=== PATIENT | female | born 1980 | race Caucasian/White ===

== ENCOUNTER 2018-12-19 14:30 | Inpatient (IN) | payer MEDICAID ==
[~2018-12-19] VITALS: Ht 154.9 cm; Wt 66.0 kg
[~2018-12-19 14:30] MED LIST: GABA-530 PO; HUM7525 SQ; LANTUS SQ; SULF1TAB49 PO
[2018-12-19] MEDS ORDERED: normal saline 1000ML IV soln IV ONE (15:10)
[2018-12-19] MEDS ORDERED: piperacillin/tazo 3.375gm/50ml 50 ML IV ONE (15:40)
[2018-12-19] MEDS ORDERED: vancomycin/NS 1 GM ADD-VANTAGE 250 ML IV ONE (15:40)
[2018-12-19 16:04] LABS: BASOPHILS % (AUTO) 0.4 % (0-1); EOSINOPHILS # (AUTO) 0.1 X10'3 (0-0.9); EOSINOPHILS % (AUTO) 0.9 % (0-6); HEMATOCRIT 31.5 % (35.0-45.0); HEMOGLOBIN 10.5 g/dl (12.0-16.0); LYMPHOCYTES # (AUTO) 2.2 X10'3 (1.1-4.8); LYMPHOCYTES % (AUTO) 19.3 % (21-51); MEAN CORPUSCULAR HEMOGLOBIN 29.9 PG (27.0-31.0); MEAN CORPUSCULAR HGB CONC 33.4 g/dL (33.0-36.5); MEAN CORPUSCULAR VOLUME 89.4 FL (78-98); MEAN PLATELET VOLUME 7.2 FL (7.4-10.4); MONOCYTES # (AUTO) 0.7 X10'3 (0-0.9); MONOCYTES % (AUTO) 6.6 % (2-12); NEUTROPHILS # (AUTO) 8.2 X10'3 (1.8-7.7); NEUTROPHILS % (AUTO) 72.8 % (42-75); PLATELET COUNT 348 X10'3 (140-440); RED BLOOD COUNT 3.52 X10'6 (4.20-5.60); RED CELL DISTRIBUTION WIDTH 13.9 % (11.5-14.5); WHITE BLOOD COUNT 11.2 X10'3 (4.5-11.0)
[2018-12-19 16:18] LABS: ALANINE AMINOTRANSFERASE 44 U/L (12-78); ALBUMIN 3.1 G/DL (3.4-5.0); ALBUMIN/GLOBULIN RATIO 0.6 (1.1-1.5); ALKALINE PHOSPHATASE 133 IU/L (46-116); ANION GAP 13 (8-16); ASPARTATE AMINO TRANSFERASE 18 U/L (10-37); BILIRUBIN,TOTAL 0.3 MG/DL (0.1-1.0); BLOOD UREA NITROGEN 14 MG/DL (7-18); BUN/CREATININE RATIO 15.6 (6.6-38.0); CALCIUM 9.2 MG/DL (8.5-10.1); CHLORIDE 103 MMOL/L (99-107); GLUCOSE 222 MG/DL (70-104); MAGNESIUM 1.9 MG/DL (1.5-2.4); POTASSIUM 4.3 MMOL/L (3.5-5.1); SODIUM 137 MMOL/L (135-145); TOTAL CARBON DIOXIDE 20.7 MMOL/L (24-32); eGFR 70 ML/MIN
[2018-12-19] MEDS: normal saline 1000ml 1,000 ML IV SCH (16:21)
[2018-12-19] MEDS ORDERED: mag hydrox/Alum hydrox/simeth 30ml oral suspension PO PRN (16:25)
[2018-12-19] MEDS ORDERED: potassium Cl 20 mEq SR tablet PO PRN ×2 (16:25)
[2018-12-19] MEDS ORDERED: potassium CL 10mEq/100ml bag 100 ML IV PRN (16:25)
[2018-12-19] MEDS ORDERED: HYDROcodone/acetaminophen 5mg/325mg tablet PO PRN (16:25)
[2018-12-19] MEDS ORDERED: magnesium Cl slow-release 64mg tablet PO PRN (16:25)
[2018-12-19] MEDS ORDERED: magnesium 4gm in 100ml NS 100 ML IV PRN (16:25)
[2018-12-19] MEDS ORDERED: acetaminophen 325mg tablet PO PRN ×2 (16:25)
[2018-12-19] MEDS ORDERED: morphine 2 MG/ML inj. syringe IV PRN (16:25)
[2018-12-19] MEDS ORDERED: magnesium hydroxide 30ml (MOM) UD suspension PO PRN (16:25)
[2018-12-19] MEDS ORDERED: dextrose ORAL solution 15 GM/59 ML bottle PO PRN (16:25)
[2018-12-19] MEDS ORDERED: potassium Cl 40MEQ/NS 500ml 500 ML IV PRN (16:25)
[2018-12-19] MEDS ORDERED: magnesium 2GM in 50ml NS 50 ML IV PRN (16:25)
[2018-12-19] MEDS ORDERED: glucagon, human recombinant 1mg kit SUBCUT PRN (16:25)
[2018-12-19] MEDS ORDERED: ondansetron/PF 4mg/2ml inj IV PRN (16:25)
[2018-12-19] MEDS ORDERED: dextrose 50%-water 50ml dispensing syringe IV PRN ×2 (16:25)
[2018-12-19] MEDS ORDERED: MESSAGE TO PHARMACY PO ONE (16:25)
[2018-12-19] MEDS ORDERED: morphine 4 MG/ML inj SYRINge IV ONE (16:35)
[2018-12-19] MEDS ORDERED: ondansetron 4mg rapidly disintigrating tab PO ONE (16:35)
[2018-12-19] MEDS ORDERED: iohexol 300mg/ml 100ml inj. ONE (16:42)
[2018-12-19] MEDS ORDERED: LORA10TA7 PO (16:51)
[2018-12-19] MEDS ORDERED: CYCL5TAB4 PO (16:51)
[2018-12-19] MEDS ORDERED: LORA2TAB PO (16:52)
[2018-12-19] MEDS ORDERED: OMEP10CA5 PO (16:53)
[2018-12-19] MEDS ORDERED: MYL80T PO (16:56)
[2018-12-19 16:57] LABS: HEMOGLOBIN A1C 8.7 % (4.5-6.2)
[2018-12-19 17:08] LABS: PARTIAL THROMBOPLASTIN TIME 29 SECONDS (22-32)
[2018-12-19] MEDS ORDERED: simethicone 80mg chew tab PO PRN (17:20)
[2018-12-19] MEDS ORDERED: cyclobenzaprine 10mg tablet PO PRN (17:20)
[2018-12-19 17:32] LABS: URINE HCG NEGATIVE (NEG)
[2018-12-19 17:40] LABS: COLOR,URINE YELLOW (Yellow); GLUCOSE, URINE 100 mg/dl (Neg); KETONES,URINE NEGATIVE (Neg); LEUKOCYTE ESTERASE ,URINE SMALL (Neg); NITRITES, URINE NEGATIVE (Neg); OCCULT BLOOD,URINE SMALL (Neg); PROTEIN,URINE NEGATIVE (Neg); UROBILINOGEN,URINE 0.2 E.U/dL (0.2-1.0)
[2018-12-19] MEDS ORDERED: LORA0.5T PO (17:43)
[2018-12-19] MEDS ORDERED: INSU100I39 (17:43)
[2018-12-19] MEDS ORDERED: INSU100I31 SQ (17:43)
[2018-12-19 17:44] LABS: URINE AMPHETAMINE SCREEN NEGATIVE (Neg); URINE BARBITUATE SCREEN NEGATIVE (Neg); URINE BENZODIAZEPINES SCREEN NEGATIVE (Neg); URINE CANNABINOID SCREEN POSITIVE (Neg); URINE COCAINE SCREEN NEGATIVE (Neg); URINE METHADONE SCREEN NEGATIVE (Neg); URINE OPIATE SCREEN POSITIVE (Neg); URINE PHENCYCLIDINE SCREEN NEGATIVE (Neg)
[2018-12-19 17:50] LABS: CLARITY,URINE SLIGHTLY CLOUDY (Clear); UA COLLECTION TYPE VOIDED
[2018-12-19 17:51] LABS: WBC,URINE 0-4 /HPF (0-4)
[2018-12-19 17:52] LABS: BACTERIA,URINE FEW /HPF (Neg); SQUAMOUS EPITHELIAL CELL,UR FEW /LPF (FEW)
--- NOTE | 2018-12-19 18:44 | NUR ---
pt denies any nausea at this time,iv bolus still infusing as iv is 22g.
[2018-12-19 20:15] VITALS: BP 94/62
[2018-12-19] MEDS: lactobacillus rhamnosus 10,000 MMU CELLS/CAPSULE PO SCH (20:27)
[2018-12-19] MEDS: morphine 2 MG/ML inj. syringe IV PRN (20:35)
[2018-12-19] MEDS: insulin glargine (Lantus) pen - multi-dose SQ SCH (22:06)
[2018-12-19] MEDS: insulin Lispro (HumaLOG) vial - multi-dose SQ SCH (22:07)
[2018-12-19] MEDS: LORazepam 1 MG tablet PO PRN (22:21)
[2018-12-20] VITALS: BP 98/62
[2018-12-20] MEDS: gabapentin 100mg capsule PO SCH ×4 (00:29→23:47)
[2018-12-20] MEDS: piperacillin/tazo 3.375gm/50ml 50 ML IV SCH ×4 (00:29→23:47)
[2018-12-20] MEDS: HYDROcodone/acetaminophen 10/325mg tab PO PRN (02:54)
[2018-12-20] MEDS: normal saline 1000ml 1,000 ML IV SCH ×3 (02:55→23:47)
[2018-12-20] MEDS ORDERED: vancomycin/NS 1 GM ADD-VANTAGE 250 ML IV SCH (05:00)
[2018-12-20 05:01] LABS: BASOPHILS % (AUTO) 0.4 % (0-1); EOSINOPHILS # (AUTO) 0.3 X10'3 (0-0.9); EOSINOPHILS % (AUTO) 4.6 % (0-6); HEMOGLOBIN 8.7 g/dl (12.0-16.0); LYMPHOCYTES # (AUTO) 1.8 X10'3 (1.1-4.8); LYMPHOCYTES % (AUTO) 24.7 % (21-51); MEAN CORPUSCULAR HEMOGLOBIN 29.9 PG (27.0-31.0); MEAN CORPUSCULAR HGB CONC 33.3 g/dL (33.0-36.5); MEAN CORPUSCULAR VOLUME 89.8 FL (78-98); MEAN PLATELET VOLUME 7.1 FL (7.4-10.4); MONOCYTES # (AUTO) 0.7 X10'3 (0-0.9); MONOCYTES % (AUTO) 9.2 % (2-12); NEUTROPHILS # (AUTO) 4.4 X10'3 (1.8-7.7); NEUTROPHILS % (AUTO) 61.1 % (42-75); PLATELET COUNT 328 X10'3 (140-440); RED CELL DISTRIBUTION WIDTH 13.9 % (11.5-14.5); WHITE BLOOD COUNT 7.2 X10'3 (4.5-11.0)
[2018-12-20 05:29] LABS: ALBUMIN 2.5 G/DL (3.4-5.0); ANION GAP 10 (8-16); BLOOD UREA NITROGEN 15 MG/DL (7-18); BUN/CREATININE RATIO 19.7 (6.6-38.0); CALCIUM 8.5 MG/DL (8.5-10.1); CHLORIDE 108 MMOL/L (99-107); CREATININE 0.76 MG/DL (0.40-0.90); GLUCOSE 134 MG/DL (70-104); MAGNESIUM 1.9 MG/DL (1.5-2.4); POTASSIUM 3.9 MMOL/L (3.5-5.1); SODIUM 140 MMOL/L (135-145); TOTAL CARBON DIOXIDE 22.1 MMOL/L (24-32); eGFR 86 ML/MIN
--- NOTE | 2018-12-20 06:17 | NUR ---
Patient in room [facility]US[facility] 347. I have received report from Lisa HENDERSON and had the opportunity to ask questions and assume patient care.
--- NOTE | 2018-12-20 06:26 | NUR ---
Problems reprioritized. Patient report given, questions answered & plan of care reviewed with Cayetano RN.Patient is resting and shows no sign of distress.
[2018-12-20 07:00] VITALS: BP 120/100
[2018-12-20] MEDS: K and/or MAG REPLACEMENT MC SCH (08:00)
[2018-12-20] MEDS: pantoprazole 40mg Tablet.DR PO SCH (08:00)
[2018-12-20] MEDS: lactobacillus rhamnosus 10,000 MMU CELLS/CAPSULE PO SCH ×2 (08:00→19:44)
[2018-12-20] MEDS: loratadine 10mg tablet PO SCH (08:01)
[2018-12-20] MEDS: enoxaparin 40mg/0.4ml syringe SQ SCH (08:02)
[2018-12-20] MEDS: morphine 2 MG/ML inj. syringe IV PRN ×3 (08:02→19:44)
[2018-12-20] MEDS: insulin Lispro (HumaLOG) vial - multi-dose SQ SCH ×3 (08:17→18:42)
[2018-12-20] MEDS ORDERED: morphine 2 MG/ML inj. syringe IV ONE (10:20)
[2018-12-20 11:00] VITALS: BP 103/70
[2018-12-20] MEDS: vancomycin/NS 1 GM ADD-VANTAGE 250 ML IV SCH ×2 (13:09→21:16)
--- NOTE | 2018-12-20 14:20 | NUR ---
DIABETIC FOOT CARE EDUCATION PROVIDED BY WOUND CARE * Wash your feet daily with lukewarm water and soap. * Dry your feet well, especially between the toes. * Keep the skin moisturized with lotion, but do not apply it between the toes. * Check your feet for blisters, cuts or sores. * Use an emery board to shape your toenails even with the ends of your toes. * Change daily into clean, soft socks or stockings, not too big or too small. * Keep your feet warm and dry. * Preferably wear special padded socks and shoes that fit well. * Never walk barefoot indoors or outdoors. * Examine your shoes everyday for cracks, stan, nails or anything that could hurt your feet. * Tell your doctor if you find any of these problems or have any concerns after examining your feet. Addendum: 12/20/18 at 1421 by Diann Scott RN Amended: Links added.
--- NOTE | 2018-12-20 16:17 | NUR ---
DM consult: Pt with A1c 8.7 admit with extensive cellulitis of the right foot with diabetic foot infection with moderate sepsis. Pt seen at bedside states she takes long and short acting insulin per rx using sliding scale and checks her BG levels up to 8 times a day with a resulting BG range of 150-350. Thoroughly discussed foods that contain carbs, reading the nutrition facts label, and the importance of moderate and consistent carb intake. Per EMR pt with A1c of 14.3 in 2015 and 13.2 in 2017. Pt provided with written and verbal protein and DM ed with referral to outpatient DM class. All of patient's questions were answered at this time, RD contact information provided. Pt currently on CHO controlled diet with documented 100% PO intake. Pt reports she is still hungry after meals, pt agreeable to double protein TID, d/w dietary. Pt denies any food allergies or difficulties chewing/swallowing. Pt reports chronic diarrhea r/t colitis and states LBM today was liquid, pt requests banana with dinner, d/w dietary. Will continue to follow. Recommendations: 1) Continue with CHO controlled diet 2) Double protein TID 3) Wt per rx Addendum: 12/20/18 at [address] Amended: Links added.
--- NOTE | 2018-12-20 18:37 | NUR ---
Problems reprioritized. Patient report given, questions answered & plan of care reviewed with Prudence RN.
--- NOTE | 2018-12-20 18:56 | NUR ---
Patient in room [facility] 347. I have received report from Cayetano HENDERSON and had the opportunity to ask questions and assume patient care.
[2018-12-20 20:00] VITALS: BP 113/71
[2018-12-20] MEDS: insulin glargine (Lantus) pen - multi-dose SQ SCH (21:33)
[2018-12-20] MEDS: LORazepam 1 MG tablet PO PRN (21:34)
[2018-12-21] VITALS: BP 103/59
[2018-12-21] MEDS: morphine 2 MG/ML inj. syringe IV PRN ×6 (01:48→23:11)
[2018-12-21] MEDS ORDERED: VANCOMYCIN LEVEL IV ONE (04:30)
[2018-12-21 04:45] LABS: BASOPHILS % (AUTO) 0.5 % (0-1); EOSINOPHILS # (AUTO) 0.3 X10'3 (0-0.9); EOSINOPHILS % (AUTO) 4.1 % (0-6); HEMATOCRIT 25.6 % (35.0-45.0); HEMOGLOBIN 8.8 g/dl (12.0-16.0); LYMPHOCYTES % (AUTO) 25.1 % (21-51); MEAN CORPUSCULAR HEMOGLOBIN 30.4 PG (27.0-31.0); MEAN CORPUSCULAR HGB CONC 34.3 g/dL (33.0-36.5); MEAN CORPUSCULAR VOLUME 88.7 FL (78-98); MEAN PLATELET VOLUME 6.8 FL (7.4-10.4); MONOCYTES # (AUTO) 0.7 X10'3 (0-0.9); MONOCYTES % (AUTO) 9.2 % (2-12); NEUTROPHILS % (AUTO) 61.1 % (42-75); PLATELET COUNT 324 X10'3 (140-440); RED BLOOD COUNT 2.89 X10'6 (4.20-5.60); RED CELL DISTRIBUTION WIDTH 13.5 % (11.5-14.5); WHITE BLOOD COUNT 8.1 X10'3 (4.5-11.0)
[2018-12-21 04:57] LABS: ALBUMIN 2.3 G/DL (3.4-5.0); ANION GAP 9 (8-16); BLOOD UREA NITROGEN 10 MG/DL (7-18); BUN/CREATININE RATIO 14.9 (6.6-38.0); CALCIUM 7.8 MG/DL (8.5-10.1); CHLORIDE 106 MMOL/L (99-107); CREATININE 0.67 MG/DL (0.40-0.90); GLUCOSE 180 MG/DL (70-104); MAGNESIUM 1.6 MG/DL (1.5-2.4); POTASSIUM 3.9 MMOL/L (3.5-5.1); SODIUM 138 MMOL/L (135-145); TOTAL CARBON DIOXIDE 22.9 MMOL/L (24-32); VANCOMYCIN,TROUGH 18.7 UG/ML (6.0-14.0); eGFR > 90 ML/MIN
[2018-12-21] MEDS: vancomycin/NS 1 GM ADD-VANTAGE 250 ML IV SCH ×3 (05:24→22:19)
--- NOTE | 2018-12-21 06:29 | NUR ---
Problems reprioritized. Patient report given, questions answered & plan of care reviewed with Cayetano HENDERSON.
--- NOTE | 2018-12-21 06:31 | NUR ---
Patient in room [facility]US[facility] 347. I have received report from Lisa HENDERSON and had the opportunity to ask questions and assume patient care.
[2018-12-21 07:00] VITALS: BP 100/60
[2018-12-21] MEDS: piperacillin/tazo 3.375gm/50ml 50 ML IV SCH ×2 (07:05→16:25)
[2018-12-21] MEDS: gabapentin 100mg capsule PO SCH ×3 (07:06→23:10)
[2018-12-21] MEDS: lactobacillus rhamnosus 10,000 MMU CELLS/CAPSULE PO SCH ×2 (07:06→19:07)
[2018-12-21] MEDS: pantoprazole 40mg Tablet.DR PO SCH (07:06)
[2018-12-21] MEDS: enoxaparin 40mg/0.4ml syringe SQ SCH (07:06)
[2018-12-21] MEDS: loratadine 10mg tablet PO SCH (07:06)
[2018-12-21] MEDS: K and/or MAG REPLACEMENT MC SCH (08:00)
[2018-12-21] MEDS: insulin Lispro (HumaLOG) vial - multi-dose SQ SCH ×3 (08:46→21:03)
[2018-12-21 11:00] VITALS: BP 97/67
[2018-12-21] MEDS: dextrose ORAL solution 15 GM/59 ML bottle PO PRN (17:22)
--- NOTE | 2018-12-21 17:49 | NUR ---
Patient's blood sugar went down to 36mg/dl- 30g of glucose shot given per protocol. Patient was alert, appears weak, skin cold, clammy. Peripheral IV occluded. Repeat blood sugar after 15 minutes was 53 mg/dl, another glucose shot 15g was given to patient. Attempted to insert a new peripheral IV x2 with no success. Blood sugar after 15 minutes was 174 mg/dl. Patient stated feeling better at this time.
--- NOTE | 2018-12-21 18:26 | NUR ---
Problems reprioritized. Patient report given, questions answered & plan of care reviewed with Radu HENDERSON.
--- NOTE | 2018-12-21 18:30 | NUR ---
Patient in room [facility] 347. I have received report from Cayetano HENDERSON and had the opportunity to ask questions and assume patient care.
[2018-12-21 19:00] VITALS: BP 110/69
[2018-12-21] MEDS: LORazepam 1 MG tablet PO PRN (20:38)
[2018-12-21] MEDS: insulin glargine (Lantus) pen - multi-dose SQ SCH (21:04)
[2018-12-21 23:40] VITALS: BP 111/72
[2018-12-22] MEDS: piperacillin/tazo 3.375gm/50ml 50 ML IV SCH ×3 (00:41→16:03)
[2018-12-22] MEDS: morphine 2 MG/ML inj. syringe IV PRN ×5 (03:28→21:33)
[2018-12-22 05:08] LABS: BASOPHILS % (AUTO) 0.6 % (0-1); EOSINOPHILS # (AUTO) 0.3 X10'3 (0-0.9); EOSINOPHILS % (AUTO) 6.2 % (0-6); HEMATOCRIT 26.6 % (35.0-45.0); HEMOGLOBIN 9.4 g/dl (12.0-16.0); LYMPHOCYTES # (AUTO) 1.5 X10'3 (1.1-4.8); LYMPHOCYTES % (AUTO) 28.2 % (21-51); MEAN CORPUSCULAR HEMOGLOBIN 30.7 PG (27.0-31.0); MEAN CORPUSCULAR HGB CONC 35.3 g/dL (33.0-36.5); MEAN CORPUSCULAR VOLUME 86.8 FL (78-98); MEAN PLATELET VOLUME 6.9 FL (7.4-10.4); MONOCYTES # (AUTO) 0.6 X10'3 (0-0.9); NEUTROPHILS # (AUTO) 2.9 X10'3 (1.8-7.7); PLATELET COUNT 347 X10'3 (140-440); RED BLOOD COUNT 3.07 X10'6 (4.20-5.60); RED CELL DISTRIBUTION WIDTH 13.2 % (11.5-14.5); WHITE BLOOD COUNT 5.4 X10'3 (4.5-11.0)
[2018-12-22 05:20] LABS: ALBUMIN 2.4 G/DL (3.4-5.0); ANION GAP 6 (8-16); BLOOD UREA NITROGEN 13 MG/DL (7-18); BUN/CREATININE RATIO 18.3 (6.6-38.0); CALCIUM 8.5 MG/DL (8.5-10.1); CHLORIDE 103 MMOL/L (99-107); CREATININE 0.71 MG/DL (0.40-0.90); GLUCOSE 234 MG/DL (70-104); MAGNESIUM 1.7 MG/DL (1.5-2.4); POTASSIUM 4.2 MMOL/L (3.5-5.1); SODIUM 136 MMOL/L (135-145); TOTAL CARBON DIOXIDE 27.5 MMOL/L (24-32); eGFR > 90 ML/MIN
[2018-12-22] MEDS: vancomycin/NS 1 GM ADD-VANTAGE 250 ML IV SCH ×3 (05:24→20:06)
[2018-12-22] MEDS: HYDROcodone/acetaminophen 10/325mg tab PO PRN ×4 (05:26→19:15)
--- NOTE | 2018-12-22 06:36 | NUR ---
Problems reprioritized. Patient report given, questions answered & plan of care reviewed with serenity tsai.
[2018-12-22] MEDS: K and/or MAG REPLACEMENT MC SCH (07:37)
[2018-12-22] MEDS: loratadine 10mg tablet PO SCH (07:37)
[2018-12-22] MEDS: lactobacillus rhamnosus 10,000 MMU CELLS/CAPSULE PO SCH ×2 (07:37→19:15)
[2018-12-22] MEDS: pantoprazole 40mg Tablet.DR PO SCH (07:37)
[2018-12-22] MEDS: enoxaparin 40mg/0.4ml syringe SQ SCH (07:38)
[2018-12-22] MEDS: gabapentin 100mg capsule PO SCH ×2 (07:38→16:00)
[2018-12-22 08:00] VITALS: BP 110/66
--- NOTE | 2018-12-22 08:13 | NUR ---
Resource RN unable to scan pt.s wristband to obtain BG. Use this RNs name mariajose still did not work. Obtained new wristband for pt. Still not working. Holding pt.'s tray at this moment. Pt. asymptomatic of hyper/hypoglycemia. Contacted Ang STEINER, but cannot reach her- awaiting response at this moment.
--- NOTE | 2018-12-22 09:04 | NUR ---
PAGER ID: [phone] MESSAGE: [phone] Lalo Gamez Please call me regarding this pt. thank you. [phone]
[2018-12-22] MEDS: insulin Lispro (HumaLOG) vial - multi-dose SQ SCH ×2 (09:52→13:55)
[2018-12-22 11:22] VITALS: BP 108/72
--- NOTE | 2018-12-22 11:29 | NUR ---
MD aware of high HR. No new orders at this time.
[2018-12-22] MEDS: dextrose ORAL solution 15 GM/59 ML bottle PO PRN (17:08)
[2018-12-22 18:00] VITALS: BP 108/71
--- NOTE | 2018-12-22 18:30 | NUR ---
Patient in room [facility] 347. I have received report from Carol HENDERSON and had the opportunity to ask questions and assume patient care.
--- NOTE | 2018-12-22 18:39 | NUR ---
Gave report to Radu HENDERSON
[2018-12-22] MEDS: LORazepam 1 MG tablet PO PRN (21:33)
[2018-12-22] MEDS: insulin glargine (Lantus) pen - multi-dose SQ SCH (21:55)
[2018-12-23] VITALS: BP 111/68
[2018-12-23] MEDS: gabapentin 100mg capsule PO SCH ×2 (00:08→08:26)
[2018-12-23] MEDS: piperacillin/tazo 3.375gm/50ml 50 ML IV SCH ×2 (00:08→08:26)
[2018-12-23] MEDS: HYDROcodone/acetaminophen 10/325mg tab PO PRN ×2 (00:15→08:26)
[2018-12-23] MEDS: morphine 2 MG/ML inj. syringe IV PRN ×2 (03:58→11:48)
[2018-12-23] MEDS: vancomycin/NS 1 GM ADD-VANTAGE 250 ML IV SCH (04:04)
[2018-12-23 05:48] LABS: BASOPHILS % (AUTO) 0.4 % (0-1); EOSINOPHILS # (AUTO) 0.6 X10'3 (0-0.9); EOSINOPHILS % (AUTO) 9.5 % (0-6); HEMATOCRIT 27.3 % (35.0-45.0); HEMOGLOBIN 9.4 g/dl (12.0-16.0); LYMPHOCYTES # (AUTO) 2.4 X10'3 (1.1-4.8); LYMPHOCYTES % (AUTO) 38.7 % (21-51); MEAN CORPUSCULAR HEMOGLOBIN 30.5 PG (27.0-31.0); MEAN CORPUSCULAR HGB CONC 34.4 g/dL (33.0-36.5); MEAN CORPUSCULAR VOLUME 88.6 FL (78-98); MEAN PLATELET VOLUME 6.6 FL (7.4-10.4); MONOCYTES # (AUTO) 0.6 X10'3 (0-0.9); NEUTROPHILS # (AUTO) 2.6 X10'3 (1.8-7.7); NEUTROPHILS % (AUTO) 42.4 % (42-75); PLATELET COUNT 369 X10'3 (140-440); RED BLOOD COUNT 3.07 X10'6 (4.20-5.60); RED CELL DISTRIBUTION WIDTH 13.6 % (11.5-14.5); WHITE BLOOD COUNT 6.1 X10'3 (4.5-11.0)
[2018-12-23 06:05] LABS: ALBUMIN 2.4 G/DL (3.4-5.0); ANION GAP 7 (8-16); BLOOD UREA NITROGEN 15 MG/DL (7-18); BUN/CREATININE RATIO 18.1 (6.6-38.0); CALCIUM 8.6 MG/DL (8.5-10.1); CHLORIDE 103 MMOL/L (99-107); CREATININE 0.83 MG/DL (0.40-0.90); GLUCOSE 231 MG/DL (70-104); MAGNESIUM 1.7 MG/DL (1.5-2.4); POTASSIUM 4.4 MMOL/L (3.5-5.1); SODIUM 139 MMOL/L (135-145); TOTAL CARBON DIOXIDE 29.3 MMOL/L (24-32); eGFR 77 ML/MIN
--- NOTE | 2018-12-23 06:34 | NUR ---
Problems reprioritized. Patient report given, questions answered & plan of care reviewed with Lyla HENDERSON.
--- NOTE | 2018-12-23 06:56 | NUR ---
Patient in room [facility] 347. I have received report from Jeniffer HENDERSON and had the opportunity to ask questions and assume patient care.
[2018-12-23 07:00] VITALS: BP 117/73
[2018-12-23] MEDS: K and/or MAG REPLACEMENT MC SCH (08:00)
[2018-12-23] MEDS: lactobacillus rhamnosus 10,000 MMU CELLS/CAPSULE PO SCH (08:26)
[2018-12-23] MEDS: loratadine 10mg tablet PO SCH (08:26)
[2018-12-23] MEDS: pantoprazole 40mg Tablet.DR PO SCH (08:26)
[2018-12-23] MEDS: enoxaparin 40mg/0.4ml syringe SQ SCH (08:27)
[2018-12-23] MEDS: insulin Lispro (HumaLOG) vial - multi-dose SQ SCH (08:47)
[2018-12-23] MEDS ORDERED: CLIN-5 PO (11:04)
[2018-12-23] MEDS ORDERED: INSU100I31 SQ (11:04)
[2018-12-23 12:00] VITALS: BP 111/78
[2018-12-23] MEDS ORDERED: HYDR-4383 PO (14:04)
--- NOTE | 2018-12-23 16:46 | NUR ---
patient appears stable. wound care done and pictured. seen by Dr manley is for discharge. Triplicate given to patient for norco, and other med called throught [facility] [address]. All Dc instructions given. patient DC in stable condition via private car to home. 1400hrs.
--- NOTE | 2018-12-23 16:48 | NUR ---
patient called at 1600 stating that the [facility] pharmacy would not issue Lincoln because vivian did not have a date on. Staff talked with pharmacy at [facility] about this situation, but pharmacist at [facility] stated that she would have to return to [facility] to get DR manley to redate triplicate. patient informed, but did not call back or at this time come back to hospital to do this.
== END 2018-12-23 14:36 | disposition home or self-care (01) | DRG 720 ==
LOC: ER 14:31 → SUR 3N 19:00 → CMPBEDREQ 19:28
PROVIDERS: ADMIT Hospitalist; ATTEND Internal Medicine
PROC: BQ2R1ZZ Computerized Tomography (CT Scan) of Right Lower Extremity using Low Osmolar Contrast (ICD-10-PCS; principal; 2018-12-19)
DX: A41.9 Sepsis, unspecified organism (principal); E11.40 Type 2 diabetes mellitus with diabetic neuropathy, unspecified; E11.621 Type 2 diabetes mellitus with foot ulcer; E11.65 Type 2 diabetes mellitus with hyperglycemia; F15.90 Other stimulant use, unspecified, uncomplicated; F17.210 Nicotine dependence, cigarettes, uncomplicated; L03.115 Cellulitis of right lower limb; L97.519 Non-pressure chronic ulcer of other part of right foot with unspecified severity; Z59.0 Homelessness; Z83.3 Family history of diabetes mellitus; Z90.49 Acquired absence of other specified parts of digestive tract; Z98.51 Tubal ligation status; Z79.899 Other long term (current) drug therapy; Z79.4 Long term (current) use of insulin; Z71.6 Tobacco abuse counseling
CPT/HCPCS: 36415; 71045; 73700; 80048; 80053; 80202; 80305; 81001; 81025; 82948; 83036; 83605; 83735; 84145; 85025; 85610; 85730; 87040; 87070; 87077; 87081; 87088; 87186; 93005; 96365; 96366; 96368; 96375; 99285; G0378; J1650; J1815; J2270; J2543; J3370; J7030; Q9967

== ENCOUNTER 2019-01-16 17:55 | Emergency (ER) | payer MEDICAID ==
[~2019-01-16] VITALS: Ht 154.9 cm; Wt 68.0 kg
[~2019-01-16 17:55] MED LIST changes: +CLIN-5 PO; +CYCL5TAB4 PO; -HUM7525 SQ; +HYDR-4383 PO; +INSU100I31 SQ; +INSU100I39; -LANTUS SQ; +LORA0.5T PO; +LORA10TA7 PO; +MYL80T PO; +OMEP10CA5 PO; -SULF1TAB49 PO
[2019-01-16] MEDS ORDERED: HYDROcodone/acetaminophen 5mg/325mg tablet PO ONE (19:35)
[2019-01-16 20:04] LABS: BASOPHILS # (AUTO) 0.1 X10'3 (0-0.2); BASOPHILS % (AUTO) 1.5 % (0-1); EOSINOPHILS # (AUTO) 0.4 X10'3 (0-0.9); EOSINOPHILS % (AUTO) 5.5 % (0-6); HEMATOCRIT 32.8 % (35.0-45.0); HEMOGLOBIN 11.1 g/dl (12.0-16.0); LYMPHOCYTES # (AUTO) 2.8 X10'3 (1.1-4.8); LYMPHOCYTES % (AUTO) 37.5 % (21-51); MEAN CORPUSCULAR HEMOGLOBIN 30.1 PG (27.0-31.0); MEAN CORPUSCULAR VOLUME 88.7 FL (78-98); MEAN PLATELET VOLUME 8.1 FL (7.4-10.4); MONOCYTES # (AUTO) 0.4 X10'3 (0-0.9); MONOCYTES % (AUTO) 5.5 % (2-12); NEUTROPHILS # (AUTO) 3.7 X10'3 (1.8-7.7); PLATELET COUNT 236 X10'3 (140-440); RED CELL DISTRIBUTION WIDTH 14.4 % (11.5-14.5); WHITE BLOOD COUNT 7.3 X10'3 (4.5-11.0)
[2019-01-16 20:17] LABS: ALANINE AMINOTRANSFERASE 37 U/L (12-78); ALBUMIN 3.3 G/DL (3.4-5.0); ALBUMIN/GLOBULIN RATIO 0.8 (1.1-1.5); ALKALINE PHOSPHATASE 77 IU/L (46-116); ANION GAP 8 (8-16); ASPARTATE AMINO TRANSFERASE 13 U/L (10-37); BILIRUBIN,TOTAL 0.1 MG/DL (0.1-1.0); BLOOD UREA NITROGEN 18 MG/DL (7-18); BUN/CREATININE RATIO 21.7 (6.6-38.0); CALCIUM 9.4 MG/DL (8.5-10.1); CHLORIDE 109 MMOL/L (99-107); CREATININE 0.83 MG/DL (0.40-0.90); GLUCOSE 226 MG/DL (70-104); SODIUM 142 MMOL/L (135-145); TOTAL CARBON DIOXIDE 25.2 MMOL/L (24-32); TOTAL PROTEIN 7.4 G/DL (6.4-8.2); eGFR 77 ML/MIN
[2019-01-16] MEDS ORDERED: CLIN-96 PO (20:21)
[2019-01-16] MEDS ORDERED: clindamycin 150mg capsule PO ONE (20:25)
[2019-01-16 20:35] VITALS: BP 102/61
== END 2019-01-16 20:36 | disposition home or self-care (01) ==
LOC: ER 17:56
DX: E10.621 Type 1 diabetes mellitus with foot ulcer (principal); L97.519 Non-pressure chronic ulcer of other part of right foot with unspecified severity; L03.115 Cellulitis of right lower limb; F17.200 Nicotine dependence, unspecified, uncomplicated; F15.90 Other stimulant use, unspecified, uncomplicated; Z90.49 Acquired absence of other specified parts of digestive tract; Z98.51 Tubal ligation status; Z59.0 Homelessness; Z79.4 Long term (current) use of insulin; Z79.899 Other long term (current) drug therapy
CPT/HCPCS: 36415; 80053; 85025; 99283

== ENCOUNTER 2019-06-28 12:27 | Outpatient (CLI) | payer MEDICAID ==
[~2019-06-28 12:27] MED LIST changes: +CLIN-90 PO
== END 2019-06-28 23:59 | disposition home or self-care (01) ==
LOC: CARD DIAG 12:27
PROVIDERS: ATTEND Surgery
DX: I34.0 Nonrheumatic mitral (valve) insufficiency (principal); I50.9 Heart failure, unspecified
CPT/HCPCS: 93306

== ENCOUNTER 2019-07-09 10:14 | Emergency (ER) | payer MEDICAID ==
[~2019-07-09] VITALS: Ht 154.9 cm; Wt 68.8 kg
[2019-07-09 11:39] LABS: BASOPHILS % (AUTO) 0.4 % (0-1); EOSINOPHILS # (AUTO) 0.2 X10'3 (0-0.9); EOSINOPHILS % (AUTO) 1.8 % (0-6); HEMATOCRIT 30.5 % (35.0-45.0); HEMOGLOBIN 10.4 g/dl (12.0-16.0); LYMPHOCYTES # (AUTO) 2.3 X10'3 (1.1-4.8); LYMPHOCYTES % (AUTO) 25.5 % (21-51); MEAN CORPUSCULAR HEMOGLOBIN 30.4 PG (27.0-31.0); MEAN CORPUSCULAR HGB CONC 34.1 g/dL (33.0-36.5); MEAN CORPUSCULAR VOLUME 89.1 FL (78-98); MEAN PLATELET VOLUME 8.4 FL (7.4-10.4); MONOCYTES # (AUTO) 0.6 X10'3 (0-0.9); MONOCYTES % (AUTO) 6.3 % (2-12); PLATELET COUNT 282 X10'3 (140-440); RED BLOOD COUNT 3.43 X10'6 (4.20-5.60); RED CELL DISTRIBUTION WIDTH 14.5 % (11.5-14.5); WHITE BLOOD COUNT 9.1 X10'3 (4.5-11.0)
[2019-07-09 11:41] LABS: PARTIAL THROMBOPLASTIN TIME 21 SECONDS (22-32)
[2019-07-09 12:28] LABS: ALANINE AMINOTRANSFERASE 49 U/L (12-78); ALBUMIN 3.6 G/DL (3.4-5.0); ALBUMIN/GLOBULIN RATIO 0.9 (1.1-1.5); ALKALINE PHOSPHATASE 98 IU/L (46-116); ANION GAP 12 (8-16); ASPARTATE AMINO TRANSFERASE 40 U/L (10-37); BILIRUBIN,TOTAL 0.2 MG/DL (0.1-1.0); BLOOD UREA NITROGEN 18 MG/DL (7-18); BUN/CREATININE RATIO 13.6 (6.6-38.0); CALCIUM 9.1 MG/DL (8.5-10.1); CHLORIDE 103 MMOL/L (99-107); CREATININE 1.32 MG/DL (0.40-0.90); GLUCOSE 127 MG/DL (70-104); POTASSIUM 4.7 MMOL/L (3.5-5.1); SODIUM 136 MMOL/L (135-145); TOTAL CARBON DIOXIDE 21.4 MMOL/L (24-32); TOTAL PROTEIN 7.4 G/DL (6.4-8.2); eGFR 45 ML/MIN
[2019-07-09 13:27] VITALS: BP 96/62
--- NOTE | 2019-07-09 13:54 | NUR ---
WOUND CULTURE COLLECTED
[2019-07-09] MEDS ORDERED: HYDROcodone/acetaminophen 5mg/325mg tablet PO ONE ×2 (14:20)
== END 2019-07-09 14:30 | disposition home or self-care (01) ==
LOC: ER 10:14
DX: M96.89 Other intraoperative and postprocedural complications and disorders of the musculoskeletal system (principal); E11.9 Type 2 diabetes mellitus without complications; F15.90 Other stimulant use, unspecified, uncomplicated; I10 Essential (primary) hypertension; Z90.49 Acquired absence of other specified parts of digestive tract; Z98.890 Other specified postprocedural states; Z98.51 Tubal ligation status; Z59.0 Homelessness; Z79.899 Other long term (current) drug therapy; Z79.4 Long term (current) use of insulin; Z89.421 Acquired absence of other right toe(s)
CPT/HCPCS: 36415; 71045; 80053; 82948; 83605; 84145; 85025; 85610; 85730; 87040; 87070; 87077; 87186; 99284

== ENCOUNTER 2019-07-25 08:37 | Outpatient (CLI) | payer MEDICAID ==
[2019-07-25] MEDS ORDERED: diatrozoate meglu/diatrozoate sod (37% iodine) 120ML oral solution ONE (08:52)
== END 2019-07-25 23:59 | disposition home or self-care (01) ==
LOC: 64 CT 08:37
PROVIDERS: ATTEND Surgery
DX: K57.30 Diverticulosis of large intestine without perforation or abscess without bleeding (principal); N20.0 Calculus of kidney; R63.4 Abnormal weight loss; R19.7 Diarrhea, unspecified; I77.1 Stricture of artery
CPT/HCPCS: 74176; Q9963

== ENCOUNTER 2019-08-19 18:40 | Emergency (ER) | payer MEDICAID ==
[~2019-08-19] VITALS: Ht 154.9 cm; Wt 70.5 kg
[~2019-08-19 18:40] MED LIST changes: -CLIN-90 PO; +CLIN-97 PO
[2019-08-19] MEDS ORDERED: HYDR-4383 PO (23:00)
[2019-08-19] MEDS ORDERED: CEPH250T PO (23:02)
[2019-08-19] MEDS ORDERED: HYDROcodone/acetaminophen 10/325mg tab PO ONE (23:25)
[2019-08-19 23:37] VITALS: BP 121/67
== END 2019-08-19 23:40 | disposition home or self-care (01) ==
LOC: ER 18:41
DX: M79.604 Pain in right leg (principal); E11.40 Type 2 diabetes mellitus with diabetic neuropathy, unspecified; F17.200 Nicotine dependence, unspecified, uncomplicated; F15.90 Other stimulant use, unspecified, uncomplicated; Z90.49 Acquired absence of other specified parts of digestive tract; Z98.890 Other specified postprocedural states; Z98.51 Tubal ligation status; Z59.0 Homelessness; Z79.4 Long term (current) use of insulin; Z79.899 Other long term (current) drug therapy
CPT/HCPCS: 82948; 99284

== ENCOUNTER 2019-08-24 06:34 | Day surgery (SDC) | payer MEDICAID ==
[~2019-08-24] VITALS: Ht 154.9 cm; Wt 66.9 kg
[2019-08-24] VITALS (10 sets, daily range): BP systolic 98–180; BP diastolic 58–109
[~2019-08-24 06:34] MED LIST changes: +CEPH250T PO
[2019-08-24] MEDS ORDERED: normal saline 1000ml 1,000 ML IV PRN (07:00)
[2019-08-24 07:07] LABS: BASOPHILS # (AUTO) 0.1 X10'3 (0-0.2); EOSINOPHILS # (AUTO) 0.3 X10'3 (0-0.9); EOSINOPHILS % (AUTO) 3.1 % (0-6); HEMATOCRIT 27.6 % (35.0-45.0); HEMOGLOBIN 9.5 g/dl (12.0-16.0); LYMPHOCYTES # (AUTO) 2.1 X10'3 (1.1-4.8); LYMPHOCYTES % (AUTO) 24.8 % (21-51); MEAN CORPUSCULAR HEMOGLOBIN 29.8 PG (27.0-31.0); MEAN CORPUSCULAR HGB CONC 34.4 g/dL (33.0-36.5); MEAN CORPUSCULAR VOLUME 86.6 FL (78-98); MEAN PLATELET VOLUME 6.8 FL (7.4-10.4); MONOCYTES # (AUTO) 0.6 X10'3 (0-0.9); NEUTROPHILS # (AUTO) 5.3 X10'3 (1.8-7.7); NEUTROPHILS % (AUTO) 64.1 % (42-75); PLATELET COUNT 384 X10'3 (140-440); RED BLOOD COUNT 3.18 X10'6 (4.20-5.60); RED CELL DISTRIBUTION WIDTH 13.9 % (11.5-14.5); WHITE BLOOD COUNT 8.3 X10'3 (4.5-11.0)
[2019-08-24 07:16] LABS: ANION GAP 9 (8-16); BLOOD UREA NITROGEN 11 MG/DL (7-18); BUN/CREATININE RATIO 12.9 (6.6-38.0); CALCIUM 8.4 MG/DL (8.5-10.1); CHLORIDE 113 MMOL/L (99-107); CREATININE 0.85 MG/DL (0.40-0.90); GLUCOSE 184 MG/DL (70-104); POTASSIUM 4.8 MMOL/L (3.5-5.1); SODIUM 143 MMOL/L (135-145); TOTAL CARBON DIOXIDE 20.8 MMOL/L (24-32); eGFR 75 ML/MIN
[2019-08-24] MEDS ORDERED: LANTUS SQ (07:25)
[2019-08-24] MEDS ORDERED: IBUP1CAP11 PO (07:27)
[2019-08-24] MEDS ORDERED: OMEP20TA5 PO (07:28)
[2019-08-24] MEDS ORDERED: LIDOcaine 1%/PF 5ML 10 MG/ML VIAL ONE (07:40)
[2019-08-24] MEDS ORDERED: midazolam 2 mg/2 ml injection ONE ×2 (07:40→09:11)
[2019-08-24] MEDS ORDERED: heparin 1,000 UNITS/NS 500ml 500 ML ONE (07:40)
[2019-08-24] MEDS ORDERED: fentaNYL/PF 50MCG/1 ML 2ML syringe ONE ×2 (07:40→09:11)
[2019-08-24] MEDS ORDERED: iohexol 300mg/ml 100ml inj. ONE ×2 (07:41→09:34)
[2019-08-24] MEDS ORDERED: normal saline 1000ml 1,000 ML IV SCH (08:45)
[2019-08-24] MEDS ORDERED: HYDROcodone/acetaminophen 10/325mg tab PO PRN (11:25)
[2019-08-31] MEDS ORDERED: METO5TAB85 PO (02:14)
== END 2019-08-24 14:15 | disposition home or self-care (01) ==
LOC: SSTAY O 06:34
PROVIDERS: ATTEND Radiology Diagnostic Radiology
DX: I77.4 Celiac artery compression syndrome (principal); E11.9 Type 2 diabetes mellitus without complications; Z98.890 Other specified postprocedural states; F17.210 Nicotine dependence, cigarettes, uncomplicated; Z89.432 Acquired absence of left foot
CPT/HCPCS: 36245; 36415; 75726; 76937; 80048; 85025; 85610; 99152; 99153; C1760; C1769; C1894; J1644; J2250; J3010; J7030; Q9967

== ENCOUNTER 2022-11-03 06:32 | Emergency (ER) | payer MEDICAID ==
[~2022-11-03] VITALS: Ht 154.9 cm; Wt 50.5 kg
[~2022-11-03 06:32] MED LIST changes: -CEPH250T PO; -CLIN-5 PO; -CLIN-97 PO; -CYCL5TAB4 PO; -HYDR-4383 PO; +IBUP1CAP11 PO; -INSU100I31 SQ; +LANTUS SQ; -LORA0.5T PO; -LORA10TA7 PO; +METO5TAB85 PO; -MYL80T PO; -OMEP10CA5 PO; +OMEP20TA43 PO
[2022-11-03 06:35] VITALS: BP 145/95
[2022-11-03] MEDS ORDERED: buprenorphine/naloxone 8MG-2MG SUBlingual film SL STA (08:20)
== END 2022-11-03 11:09 | disposition home or self-care (01) ==
LOC: ER 06:33
DX: T87.89 Other complications of amputation stump (principal); F11.23 Opioid dependence with withdrawal; R11.2 Nausea with vomiting, unspecified; R19.7 Diarrhea, unspecified; E11.9 Type 2 diabetes mellitus without complications; R10.13 Epigastric pain; F12.90 Cannabis use, unspecified, uncomplicated; Z90.49 Acquired absence of other specified parts of digestive tract; Z98.51 Tubal ligation status; Z59.00 Homelessness unspecified; Z79.4 Long term (current) use of insulin; Z79.899 Other long term (current) drug therapy
CPT/HCPCS: 73551; 99284

== ENCOUNTER 2022-12-03 11:57 | Emergency (ER) | payer MEDICAID ==
[~2022-12-03] VITALS: Ht 154.9 cm; Wt 50.5 kg
[2022-12-03 12:11] VITALS: BP 129/91
[2022-12-03 12:31] LABS: CLARITY,URINE SLIGHTLY CLOUDY (Clear); COLOR,URINE YELLOW (Yellow); GLUCOSE, URINE 100 mg/dl (Neg); KETONES,URINE NEGATIVE (Neg); LEUKOCYTE ESTERASE ,URINE NEGATIVE (Neg); NITRITES, URINE NEGATIVE (Neg); OCCULT BLOOD,URINE SMALL (Neg); PROTEIN,URINE 30 mg/dl (Neg); UROBILINOGEN,URINE 0.2 E.U/dL (0.2-1.0)
[2022-12-03 12:34] LABS: UA COLLECTION TYPE CLN CATCH MIDSTREAM
[2022-12-03 12:40] LABS: SQUAMOUS EPITHELIAL CELL,UR MANY /LPF (FEW)
[2022-12-03 12:42] LABS: SPERM MODERATE /HPF
[2022-12-03 12:44] LABS: BACTERIA,URINE 2+ /HPF (Neg)
--- NOTE | 2022-12-03 12:45 | NUR ---
URINE REJECTED FOR CULTURE
[2022-12-03] MEDS ORDERED: buprenorphine/naloxone 8MG-2MG SUBlingual film SL STA (13:03)
[2022-12-03] MEDS ORDERED: NITR100C6 PO (13:09)
== END 2022-12-03 13:18 | disposition home or self-care (01) ==
LOC: ER 11:58
DX: N39.0 Urinary tract infection, site not specified (principal); F11.23 Opioid dependence with withdrawal; E11.9 Type 2 diabetes mellitus without complications; G89.29 Other chronic pain; M54.9 Dorsalgia, unspecified; Z90.49 Acquired absence of other specified parts of digestive tract; Z79.899 Other long term (current) drug therapy
CPT/HCPCS: 81001; 99283

== ENCOUNTER 2022-12-06 12:46 | Emergency (ER) | payer MEDICAID ==
[~2022-12-06] VITALS: Ht 154.9 cm; Wt 50.5 kg
[~2022-12-06 12:46] MED LIST changes: +NITR100C6 PO
[2022-12-06 13:11] VITALS: BP 11/83
[2022-12-06] MEDS ORDERED: buprenorphine/naloxone 8mg/2mg SL tablet SL ONE (14:45)
--- NOTE | 2022-12-06 14:45 | NUR ---
WAITING ON PHARMACY FOR MED, NOT STOCKED IN [facility] - how to [place].
--- NOTE | 2022-12-06 15:34 | NUR ---
2ND CALL TO PHARMACY, MED NOT AVAILABLE IN PILL FORM ONLY FILM. PROVIDER NOTIFIED [facility] TO CHANGE MED TO FILM. PHARMACIST NOTIFIED.
[2022-12-06] MEDS ORDERED: buprenorphine/naloxone 8MG-2MG SUBlingual film SL ONE (15:35)
== END 2022-12-06 15:45 | disposition home or self-care (01) ==
LOC: ER 12:47
DX: H72.91 Unspecified perforation of tympanic membrane, right ear (principal)
CPT/HCPCS: 99283

== ENCOUNTER 2023-01-04 07:12 | Emergency (ER) | payer MEDICAID ==
[~2023-01-04] VITALS: Ht 154.9 cm; Wt 50.5 kg
[2023-01-04 07:17] VITALS: BP 187/92; PULSE 85; RESP 18; TEMP 98.1; O2SAT 100
[2023-01-04] MEDS ORDERED: buprenorphine/naloxone 8MG-2MG SUBlingual film SL ONE (07:50)
== END 2023-01-04 08:05 | disposition home or self-care (01) ==
LOC: ER 07:13
DX: F11.10 Opioid abuse, uncomplicated (principal); E11.9 Type 2 diabetes mellitus without complications; F12.90 Cannabis use, unspecified, uncomplicated; G89.29 Other chronic pain; Z90.49 Acquired absence of other specified parts of digestive tract; Z90.710 Acquired absence of both cervix and uterus; Z98.890 Other specified postprocedural states; Z59.00 Homelessness unspecified; Z79.899 Other long term (current) drug therapy
CPT/HCPCS: 99284

== ENCOUNTER 2023-01-30 06:57 | Emergency (ER) | payer MEDICAID ==
[~2023-01-30] VITALS: Ht 154.9 cm; Wt 55.0 kg
[2023-01-30 07:00] VITALS: BP 136/84; PULSE 87; RESP 18; TEMP 97; O2SAT 100
[2023-01-30] MEDS ORDERED: buprenorphine/naloxone 8MG-2MG SUBlingual film SL STA (07:40)
[2023-01-30 07:57] LABS: BILIRUBIN,URINE NEGATIVE (Neg); CLARITY,URINE CLOUDY (Clear); COLOR,URINE STRAW (Yellow); GLUCOSE, URINE NEGATIVE (Neg); KETONES,URINE NEGATIVE (Neg); LEUKOCYTE ESTERASE ,URINE MODERATE (Neg); NITRITES, URINE NEGATIVE (Neg); OCCULT BLOOD,URINE MODERATE (Neg); PH,URINE 5.5 (4.8-8.0); PROTEIN,URINE NEGATIVE (Neg); UROBILINOGEN,URINE 0.2 E.U/dL (0.2-1.0)
[2023-01-30 07:59] LABS: URINE HCG NEGATIVE (NEG)
[2023-01-30 08:00] LABS: UA COLLECTION TYPE CLN CATCH MIDSTREAM
[2023-01-30 08:04] LABS: BACTERIA,URINE 4+ /HPF (Neg); MUCUS STRANDS NONE SEEN /LPF (Neg); SQUAMOUS EPITHELIAL CELL,UR MODERATE /LPF (FEW); WBC CLUMPS,URINE FEW /HPF (NEGATIVE); WBC,URINE 50-100 /HPF (0-4)
[2023-01-30] MEDS ORDERED: NITR100C6 PO (08:21)
[2023-01-30] MEDS ORDERED: PHEN-824 PO (08:21)
[2023-01-30] MEDS ORDERED: BUPR1FIL3 SL (17:14)
== END 2023-01-30 08:30 | disposition home or self-care (01) ==
LOC: ER 06:58
DX: F11.23 Opioid dependence with withdrawal (principal); N39.0 Urinary tract infection, site not specified; E11.9 Type 2 diabetes mellitus without complications; G89.29 Other chronic pain; M54.9 Dorsalgia, unspecified; Z79.899 Other long term (current) drug therapy
CPT/HCPCS: 81001; 81025; 87077; 87088; 87186; 99283

== ENCOUNTER 2023-01-30 14:58 | Emergency (ER) | payer MEDICAID ==
[~2023-01-30] VITALS: Ht 154.9 cm; Wt 55.0 kg
[~2023-01-30 14:58] MED LIST changes: +PHEN-824 PO
[2023-01-30 15:09] VITALS: BP 113/80; PULSE 86; RESP 18; O2SAT 98
[2023-01-30] MEDS ORDERED: BUPR1FIL3 SL (17:14)
[2023-01-30] MEDS ORDERED: buprenorphine/naloxone 8MG-2MG SUBlingual film SL ONE (17:16)
[2023-01-30 17:54] VITALS: TEMP 98
== END 2023-01-31 06:36 | disposition home or self-care (01) ==
LOC: ER 14:59
DX: F11.23 Opioid dependence with withdrawal (principal); N39.0 Urinary tract infection, site not specified; E11.9 Type 2 diabetes mellitus without complications; F12.90 Cannabis use, unspecified, uncomplicated; Z79.899 Other long term (current) drug therapy; Z79.82 Long term (current) use of aspirin; Z79.84 Long term (current) use of oral hypoglycemic drugs; Z98.890 Other specified postprocedural states; Z98.51 Tubal ligation status
CPT/HCPCS: 99283

== ENCOUNTER 2023-02-01 07:10 | Emergency (ER) | payer MEDICAID ==
[~2023-02-01] VITALS: Ht 162.6 cm; Wt 50.5 kg
[~2023-02-01 07:10] MED LIST changes: +BUPR1FIL3 SL
[2023-02-01 07:12] VITALS: BP 159/96; PULSE 86; RESP 20; TEMP 97.2; O2SAT 100
[2023-02-01] MEDS ORDERED: buprenorphine/naloxone 8MG-2MG SUBlingual film SL STA (08:13)
== END 2023-02-01 08:35 | disposition home or self-care (01) ==
LOC: ER 07:10
DX: F41.9 Anxiety disorder, unspecified (principal); E11.9 Type 2 diabetes mellitus without complications; F12.90 Cannabis use, unspecified, uncomplicated; Z79.899 Other long term (current) drug therapy; Z79.1 Long term (current) use of non-steroidal anti-inflammatories (NSAID); Z79.82 Long term (current) use of aspirin; Z98.890 Other specified postprocedural states; Z98.51 Tubal ligation status
CPT/HCPCS: 99283

== ENCOUNTER 2023-02-28 07:43 | Emergency (ER) | payer MEDICAID ==
[~2023-02-28] VITALS: Ht 154.9 cm; Wt 54.5 kg
[~2023-02-28 07:43] MED LIST changes: -BUPR1FIL3 SL
[2023-02-28 07:46] VITALS: BP 116/79; PULSE 91; RESP 16; TEMP 98.9; O2SAT 100
--- NOTE | 2023-02-28 07:57 | NUR ---
PER DR TIRADO, UA NOT NEEDED AT THIS TIME. PT RETURNED TO LOBBY TO BE DC WITH RX
[2023-02-28] MEDS ORDERED: buprenorphine/naloxone 8MG-2MG SUBlingual film SL ONE (08:20)
[2023-02-28] MEDS ORDERED: CIPR-259 PO (08:28)
== END 2023-02-28 08:55 | disposition home or self-care (01) ==
LOC: ER 07:43
DX: N39.0 Urinary tract infection, site not specified (principal); E11.9 Type 2 diabetes mellitus without complications; Z79.899 Other long term (current) drug therapy
CPT/HCPCS: 99283; A6266

== ENCOUNTER 2023-03-27 08:01 | Emergency (ER) | payer MEDICAID ==
[~2023-03-27] VITALS: Ht 154.9 cm; Wt 50.5 kg
[2023-03-27 08:15] VITALS: BP 159/88; PULSE 86; RESP 18; O2SAT 100
[2023-03-27 09:07] LABS: URINE HCG NEGATIVE (NEG)
[2023-03-27 09:09] LABS: BILIRUBIN,URINE NEGATIVE (Neg); CLARITY,URINE SLIGHTLY CLOUDY (Clear); COLOR,URINE YELLOW (Yellow); GLUCOSE, URINE NEGATIVE (Neg); KETONES,URINE NEGATIVE (Neg); LEUKOCYTE ESTERASE ,URINE SMALL (Neg); NITRITES, URINE POSITIVE (Neg); OCCULT BLOOD,URINE MODERATE (Neg); PROTEIN,URINE TRACE mg/dl (Neg); UROBILINOGEN,URINE 0.2 E.U/dL (0.2-1.0)
[2023-03-27 09:16] LABS: UA COLLECTION TYPE CLN CATCH MIDSTREAM
[2023-03-27 09:19] LABS: SQUAMOUS EPITHELIAL CELL,UR MANY /LPF (FEW)
[2023-03-27 09:20] LABS: BACTERIA,URINE 4+ /HPF (Neg); WBC,URINE 30-50 /HPF (0-4)
[2023-03-27] MEDS ORDERED: buprenorphine/naloxone 8MG-2MG SUBlingual film SL SCH (11:00)
[2023-03-27] MEDS ORDERED: SULF1TAB49 PO (11:04)
[2023-03-27] MEDS ORDERED: sulfamethoxazole/trimethoprim DS (800/160mg) tablet PO ONE (11:05)
[2023-03-27 11:24] VITALS: TEMP 98.6
--- NOTE | 2023-03-27 11:24 | NUR ---
pt medicated per [employer] orders. verbalized understanding to d/c instructions.
== END 2023-03-27 11:25 | disposition home or self-care (01) ==
LOC: ER 08:01
DX: N39.0 Urinary tract infection, site not specified (principal); E11.9 Type 2 diabetes mellitus without complications; G89.29 Other chronic pain; F12.90 Cannabis use, unspecified, uncomplicated; Z90.49 Acquired absence of other specified parts of digestive tract; Z98.51 Tubal ligation status; Z98.890 Other specified postprocedural states; Z59.00 Homelessness unspecified; Z79.899 Other long term (current) drug therapy
CPT/HCPCS: 81001; 81025; 99283

== ENCOUNTER 2023-04-25 07:45 | Emergency (ER) | payer MEDICAID ==
[~2023-04-25] VITALS: Ht 154.9 cm; Wt 56.8 kg
[2023-04-25 07:47] VITALS: BP 140/82; PULSE 86; RESP 18; TEMP 98; O2SAT 100
[2023-04-25] MEDS ORDERED: SULF1TAB49 PO (10:24)
[2023-04-25] MEDS ORDERED: CEPH-585 PO (10:24)
--- NOTE | 2023-04-25 10:49 | NUR ---
Pt seen and treated by provider prior to nursing assessment, pt stable upon dc. XPLVN
--- NOTE | 2023-04-25 10:52 | NUR ---
pt left without paper work
== END 2023-04-25 10:54 | disposition home or self-care (01) ==
LOC: ER 07:46
DX: L03.116 Cellulitis of left lower limb (principal); E11.9 Type 2 diabetes mellitus without complications; G89.29 Other chronic pain; M54.9 Dorsalgia, unspecified; F12.10 Cannabis abuse, uncomplicated; Z59.00 Homelessness unspecified; Z90.49 Acquired absence of other specified parts of digestive tract; Z79.899 Other long term (current) drug therapy
CPT/HCPCS: 73630; 99283